=== PATIENT | female | born 1970 | race Asian ===

== ENCOUNTER 2019-10-05 08:17 | Day surgery (SDC) | payer SELFPAY ==
[2019-09-30 11:47] VITALS: BMI 28.3
[2019-10-05] MEDS ORDERED: MIDAZOLAM HCL 2 MG/2 ML SINGLE DOSE VIAL ONE (08:46)
[2019-10-05] MEDS ORDERED: PROPOFOL 20 ML ONE ×2 (08:46→15:39)
[2019-10-05] MEDS ORDERED: SCOPOLAMINE HYDROBROMIDE 1 PATCH PATCH.TD72 ONE (09:44)
[2019-10-05] MEDS ORDERED: HEPARIN NA (PORCINE) 5,000 UNITS/ML 1ML VIAL ONE (09:52)
[2019-10-05] MEDS ORDERED: EPINEPHrine/PF 1 MG/1 ML (1:1,000) AMPULE ONE (09:53)
[2019-10-05] MEDS ORDERED: BACITRACIN 15 GM TUBE TOPICAL OINTMENT ONE (10:14)
[2019-10-05] MEDS ORDERED: ceFAZolin SODIUM 1 GM VIAL ONE ×2 (10:30→18:14)
[2019-10-05] MEDS ORDERED: ROCURONIUM BROMIDE 50 MG/5 ML SYRINGE ONE (12:57)
[2019-10-05] MEDS ORDERED: SEVOFLURANE 250 ML BTL ONE (13:28)
[2019-10-05] MEDS ORDERED: EPHEDRINE SULFATE/0.9% NACL/PF 50 MG/10 ML SYRINGE NR ONE (15:11)
[2019-10-05] MEDS ORDERED: ONDANSETRON 4 MG/2 ML VIAL IVPUSH PRN (16:48)
[2019-10-05] MEDS ORDERED: oxyCODONE HCL 5 MG TABLET PO PRN ×2 (16:48)
[2019-10-05] MEDS ORDERED: PROMETHAZINE HCL 25 MG/1 ML VIAL IVPUSH PRN (16:48)
[2019-10-05] MEDS ORDERED: MORPHINE SULFATE 2 MG/ML VIAL IVPUSH PRN (17:03)
[2019-10-05] MEDS ORDERED: ONDANSETRON 4 MG/2 ML VIAL IVPB PRN (17:03)
--- NOTE | 2019-10-05 17:12 | OP ---
Operative Note - Note: Operative Date: 10/05/19 Pre-Operative Diagnosis: cosmetic Operation: bilateral breast reduction with liposuctionto abdomen and back Post-Operative Diagnosis: Same as Pre-op Surgeon: Kristofer Sandoval Anesthesia: General Operative Report Dictated: Yes
[2019-10-05] MEDS ORDERED: LACTATED RINGERS SOLUTION 1,000 ML IV SCH (17:15)
[2019-10-05] MEDS: CEFAZOLIN 1 GM/D5W 1 GM/50 ML BAG IVPB SCH (19:23)
--- NOTE | 2019-10-05 21:28 | CON.CARD ---
Cardiology Consult (text) - Consultation Consultation Note: consulted by dr faustin for episodes of atrial arrhythmia during recovery postop following breast reconstruction and liposuction of abdomen today. also noted to have ekg changes vs baseline on postop 12 lead. 12 lead reviewed with diffuse TWIs, no signif ST segment shifts. compared to preop ekg 09/09/19, there are diffuse ST-Ts present with TWIs, now more pronounced in leads I/avL. telemetry strip reviewed--rhythm is mostly irregular, difficult to assess of atrial activity on the strip provided, possibly p waves in places. cannot exclude fib/flutter. d/w'd RN Yesi: there have been no recurrent tachyarrhtyhmias on telemetry and pt has stable VSs and is comfortable, without complaints of cp, sob, palpitations. there are no [facility] available [facility], however nurse reviews the chart and states that there is no prior history of HTN, DM, cardiac disease or stroke. therefore, in this patient with possible brief afib, who is CHADS VASC 1 female gender only, AC is not indicated (nor is aspirin). will check cardiac enzymes now and in AM (sooner if clinical changes or sx's). check lytes, TSH. check echo in AM.
[2019-10-05 22:14] LABS: CALCIUM 8.6 mg/dl (8.5-10); CREATININE 0.6 mg/dl (0.55-1.3); MAGNESIUM 1.6 mg/dL (1.8-2.4); POTASSIUM 4.1 mmol/L (3.5-5.1)
--- NOTE | 2019-10-06 00:23 | OP ---
DATE OF OPERATION: 10/05/2019 TITLE OF PROCEDURE: Bilateral reduction mammoplasty with liposuction to back, axilla, mons pubis, and abdomen. SURGEON: Kristofer Sandoval MD. MINE ENGINEER: NASEEM Serrano. The patient is marked in the holding area, awake and aware of all planned incisions and resulting scars. Nipples are sited at 21.5 cm from sternal notch bilaterally. Patient has requested to make the breasts as small as possible. She has had a previous inferior pedicle reduction mammoplasty and we will perform a 2nd inferior pedicle reduction mammoplasty. Patient is then brought to the operating room. 5000 units of subcutaneous heparin are given preoperatively. She is intubated. Valderrama catheter is placed. After this is completed, she is then positioned in a prone position onto the Vijay frame. All pressure points are carefully checked. Position is carefully assessed by surgical, anesthesia, and nursing teams. Sequential compression devices are applied on each leg, are functional to the case. The patient's position is secure. She is prepped and draped in standard surgical fashion. Timeout was called. Patient, procedure, incision site are verified. At this point, a wetting solution is infiltrated in the preoperatively marked areas. The wetting solution is a liter of lactated Ringer's with 1 ampule 1:100,000 epinephrine. No lidocaine is used. A total of 2 L is used wetting solution throughout the back and a full 20 minutes is awaited for hemostatic effect. At this point the safe technique of liposuction is performed with pre and post tunneling using basket-tipped cannulas not connected to suction. After this is completed, the suction is performed using 4-mm cannulas. Scratch Harde power assisted system. The total lipoaspirate is 500 mL from each upper back and axilla and a total of 900 mL from the mid and lower back together, a total live aspirate from the back is 1900 mL. After post tunneling is completed, the liposuction incisions are closed with a series of interrupted 5-0 nylon suture dressed with Steri-Strips and the entire surgical, nursing, and anesthesia team participated in repositioning the patient onto a stretcher in a supine position and then transferred back onto the operating table in a supine position. Position is carefully checked with surgical and anesthesia teams. She is re-prepped and draped in standard surgical fashion and the procedure is as follows. Additional wetting solution is infiltrated into the mons pubis and abdomen. A total of 1 L is infiltrated to all these areas, and several stab wounds were made in different areas to access the marked liposuction regions. At this point the inferior pedicles are then marked. A 42-mm cookie cutter is used for the nipple areola, and the inferior pedicle is deepithelialized. With the exception of the areolar complex this is done on both breasts, and attention is then redirected towards the abdomen and mons pubis for liposuction. Using a power assisted system and the safe technique as described on the back, lipoaspirate is 150 mL from the mons pubis and an additional 350 mL from the abdomen. These liposuction holes, post suction tunneling is performed with a nonsuction connected basket tipped cannula. Closure is then performed with a series of interrupted 5-0 nylon suture. Attention is then directed toward the breast reduction. Attention is first directed toward the right side where skin flaps are elevated lateral superior and medial. The pedicle is then developed by incision of tissue which is specifically marked medial superior and lateral; on the right side the total resected weight is 291 g. Hemostasis is meticulously achieved. Wound is copiously irrigated, tailor tacked in position. Attention is then directed toward the left side where a mirror image procedure is performed; however, the resected weight is 297 g. With both sides tailor tacked, the patient is brought to a seated upright position where excellent symmetry of size and shape are appreciated. The inferior pedicles are positioned by a single 2-0 Vicryl suture to the medial chest wall, size 10 flat JULIANNA drains were brought out through the lateral extent of the incisions. The closure is then performed with a series of series of interrupted buried deep dermal 3-0 Monocryl suture followed by running subcuticular 3-0 Monocryl suture on the vertical and horizontal limbs. The nipple areola is inset with a series of interrupted buried deep dermal 3-0 Monocryl suture followed by a running subcuticular 4-0 Monocryl suture. All tissues were pink and viable at the end of the procedure. Drains are placed to bulb suction. Patient was awoken from anesthesia. Valderrama catheter is removed, transferred to recovery. KRISTOFER SANDOVAL M.D. [id number]
[2019-10-06] MEDS: oxyCODONE HCL 5 MG TABLET PO PRN ×2 (00:45→15:59)
[2019-10-06] MEDS: CEFAZOLIN 1 GM/D5W 1 GM/50 ML BAG IVPB SCH ×2 (01:27→09:32)
[2019-10-06] MEDS ORDERED: morphine CARPU-JECT 2 MG/1 ML DISP.SYRIN IVPUSH PRN (02:04)
[2019-10-06] MEDS: HEPARIN NA (PORCINE) 5,000 UNITS/ML 1ML VIAL SQ SCH ×2 (06:01→09:32)
--- NOTE | 2019-10-06 07:13 | PN ---
Progress Note (short form) - Note Progress Note: POD 1 post liposuction and BRM Patient having diffuse pain without any focal tenderness Abd exam is soft and benign JULIANNA thin and slowed, no evidence of bleed PT OOB ambulating No furher SVT UOP adequate Appreciate cardiology consult and Echocardiogram is pending for this morning. If no further medical/cardiac issues will plan for discharge later today.
--- NOTE | 2019-10-06 10:18 | CON.CARD ---
Consult Consult Specialty:: Cardiology Referred by:: Medicine Reason for Consultation:: tachycardia - History of Present Illness Chief Complaint: tachycardia History of Present Illness: 49F no PMH p/w atrial arrhythmia, tachycardia following breast reconstruction and liposuction of abdomen. Noted to have tachycardia to 150s, mostly irregular and possibly with p waves. Baseline EKG with TWI/ST-T wave changes more pronounced on post op EKG. Trop neg x 2, no episodes overnight. Patient notes that 3 weeks ago she had complained of chest tightness when lying down to go to bed, had a holter monitor that was unremarkable per her report. no prior cardiac hx or other testing. - Past Medical History ...LMP: 05/24/15 ...LMP Comment: 2015 ...: No - Alcohol/Substance Use Hx Alcohol Use: No - Smoking History Smoking history: Never smoked Have you smoked in the past 12 months: No Home Medications - Allergies Allergies/Adverse Reactions: Allergies Allergy/AdvReac Type Severity Reaction Status Date / Time No Known Allergies Allergy Verified 10/05/19 08:51 - Home Medications Home Medications: Ambulatory Orders NK [No Known Home Medication] 09/30/19 Family Medical History Family History: Unremarkable Review of Systems - Review of Systems Constitutional: reports: No Symptoms Eyes: reports: No Symptoms HENT: reports: No Symptoms Neck: reports: No Symptoms Cardiovascular: reports: No Symptoms Respiratory: reports: No Symptoms Gastrointestinal: reports: No Symptoms Genitourinary: reports: No Symptoms Musculoskeletal: reports: No Symptoms Integumentary: reports: No Symptoms Neurological: reports: No Symptoms Endocrine: reports: No Symptoms Hematology/Lymphatic: reports: No Symptoms Psychiatric: reports: No Symptoms Vital Signs: Vital Signs Temperature 99.1 F 10/06/19 06:24 Pulse Rate 89 10/06/19 06:24 Respiratory Rate 18 10/06/19 06:24 Blood Pressure 97/50 L 10/06/19 06:24 O2 Sat by Pulse Oximetry (%) 97 10/06/19 08:20 Constitutional: Yes: No Distress, Calm Eyes: Yes: Conjunctiva Clear, EOM Intact HENT: Yes: Atraumatic, Normocephalic Neck: Yes: Supple, Trachea Midline Respiratory: Yes: Regular, CTA Bilaterally Gastrointestinal: Yes: Normal Bowel Sounds, Soft Cardiovascular: Yes: Regular Rate and Rhythm JVD: No Heart Sounds: Yes: S1, S2 Musculoskeletal: No: Back Pain Extremities: No: Cold Edema: No Peripheral Pulses WNL: Yes Integumentary: No: Jaundice Neurological: Yes: Alert, Oriented Psychiatric: No: Agitated - Other Data Labs, Other Data: CBC, BMP 10/05/19 21:45 Troponin, BNP 10/05/19 10/06/19 10/06/19 21:45 02:35 07:09 Troponin I < 0.03 < 0.02 < 0.03 Troponin, BNP 10/05/19 10/06/19 10/06/19 21:45 02:35 07:09 Troponin I < 0.03 < 0.02 < 0.03 Assessment/Plan EKG: sinus, inferolateral TWI more prominent compared to EKG 08/2019 tele: sinus strips reviewed from post op tachycardia 150s, irregular, ?P waves tachycardia, atrial arrhythmia - reportedly normal holter last month at PCP office - trop neg x 3, EKG with baseline TWI more pronounced here, no chest pain - less likely ACS - cannot exclude afib/flutter - [id number] 1 (female gender) AC and aspirin not indicated - asymptomatic, no events on tele overnight - echo pending, if benign findings no further inpatient cardiac workup - follow up with cardiology after discharge for outpatient event monitor and stress test given baseline EKG changes s/p breast reconstruction, liposuction - manage per surgery
--- NOTE | 2019-10-06 14:17 | PN ---
Progress Note (short form) - Note Progress Note: Anesthesia postop note 49 y/o F s/p GA for breast reduction, liposuction POD#1, vss, aaox3, no complaints today. Had episode of arrhythmia last night. Troponins negative, awaiting echocardiogram, cardiology input noted. 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
[2019-10-06 14:24] VITALS: BP 98/52; PULSE 87; TEMP 98.8
--- NOTE | 2019-10-08 17:25 | PATH ---
Surgical Pathology Report Patient Name: CORI GERMAIN Med. Rec. #: [id number] /Age/Gender: 1970 (Age: 49) / F Account: [id number] Location: [facility] [place] MED-SURG Taken: 10/05/2019 Received: 10/05/2019 Reported: 10/08/2019 Physicians: Kristofer Sandoval Specimen(s) Received A: RIGHT BREAST SKIN AND TISSUE B: LEFT BREAST SKIN AND TISSUE Clinical History Reduction mammoplasty Final Diagnosis A. RIGHT BREAST SKIN AND TISSUE, EXCISION: PORTIONS OF BENIGN BREAST TISSUE WITH FOCAL PROLIFERATIVE FIBROCYSTIC CHANGES INCLUDING USUAL DUCTAL HYPERPLASIA, ADENOSIS, MICROCYSTS, AND STROMAL FIBROSIS. PORTIONS OF SKIN WITH NO SIGNIFICANT PATHOLOGIC CHANGE. ONE BENIGN REACTIVE LYMPH NODE. B. LEFT BREAST SKIN AND TISSUE, EXCISION: PORTIONS OF BENIGN BREAST TISSUE. PORTIONS OF SKIN WITH NO SIGNIFICANT PATHOLOGIC CHANGE. Electronically Signed Ragini Franco M.D. Gross Description A. Received in formalin labeled "right breast skin and tissue," is a 317 g, 15.5 x 15.0 x 4.5 cm aggregate of multiple unoriented portions of fibroadipose tissue and coker-brown, unremarkable skin. Sectioning reveals a 0.7 x 0.5 x 0.5 cm coker, firm nodule. The remaining breast parenchyma displays foci of white fibrous tissue. Acid Blower sections are submitted in 5 cassettes as follows: 1-nodule; 0-2-aoeztongsd outbound call center representative skin and fibroadipose tissue. B. Received in formalin labeled "left breast skin and tissue," is 311 Gram, 16.5 x 11.0 x 4.0 cm aggregate of multiple unoriented portions of fibroadipose tissue and coker-brown, unremarkable skin. Sectioning reveals multiple foci of white fibrous tissue. No definitive lesions are identified. Acid Blower sections are submitted in 4 cassettes. DL/10/07/2019 saudi/10/07/2019
--- NOTE | 2019-10-12 14:40 | EKG ---
Test Reason : Blood Pressure : / mmHG Vent. Rate : 076 BPM Atrial Rate : 076 BPM P-R Int : 142 ms QRS Dur : 082 ms QT Int : 460 ms P-R-T Axes : 026 -12 192 degrees QTc Int : 517 ms NORMAL SINUS RHYTHM T WAVE ABNORMALITY, CONSIDER INFEROLATERAL ISCHEMIA PROLONGED QT ABNORMAL ECG NO PREVIOUS ECGS AVAILABLE Confirmed by Jordyn Levy ([id number]) on 10/12/2019 2:40:02 PM Referred By: Confirmed By:Jordyn Levy
== END 2019-10-06 16:45 | disposition home or self-care (01) ==
LOC: FASUSAT 08:17 → FM/S 18:59 → FASUSAT 10-06 16:45
PROVIDERS: ATTEND Plastic Surgery
PROC: 0J073ZZ Alteration of Back Subcutaneous Tissue and Fascia, Percutaneous Approach (ICD-10-PCS; 2019-10-05)
PROC: 0H0V0ZZ Alteration of Bilateral Breast, Open Approach (ICD-10-PCS; principal; 2019-10-05 10:50)
PROC: 0J083ZZ Alteration of Abdomen Subcutaneous Tissue and Fascia, Percutaneous Approach (ICD-10-PCS; 2019-10-05 10:50)
DX: Z41.1 Encounter for cosmetic surgery (principal); R00.0 Tachycardia, unspecified; I49.9 Cardiac arrhythmia, unspecified
CPT/HCPCS: 36415; 80048; 82550; 82553; 83735; 84443; 84484; 88305-TC; 93005; 93010; 94760; J1644